=== PATIENT | female | born 1980 | race Caucasian/White ===

== ENCOUNTER 2022-10-16 23:37 | Emergency (ER) | payer BC ==
[2022-10-17] MEDS ORDERED: Morphine 4 MG/ML Syringe IVPUSH ONE ×2 (00:32→02:37)
[2022-10-17] MEDS ORDERED: Ondansetron 4 MG/2 ML SDV IVPUSH ONE (02:38)
[2022-10-17] MEDS ORDERED: Acetaminophen/HYDROcodone 325-5 MG Tab PO ONE (02:49)
== END 2022-10-17 03:07 | disposition home or self-care (01) ==
LOC: JD.ED 23:37
DX: S52.502A Unspecified fracture of the lower end of left radius, initial encounter for closed fracture (principal); W00.0XXA Fall on same level due to ice and snow, initial encounter
CPT/HCPCS: 29125; 73110; 99283; A9270; J2270; J2405